=== PATIENT | male | born 1975 | race Two or more races ===

== ENCOUNTER 2022-01-07 01:12 | Inpatient (IN) | payer MEDICAID ==
[~2022-01-07] VITALS: Ht 170.2 cm; Wt 117.4 kg
[2022-01-07 01:58] LABS: Eosinophils # (auto) 0.2 10 ^3/uL (0-0.8); Mean Corpuscular Volume 75.5 fL (80.0-100.0); Monocytes # (auto) 0.5 10 ^3/uL (0-1.3); Nucleated Red Blood Cells % 0.1 %
[2022-01-07 02:00] LABS: Basophils # (auto) 0.1 10 ^3/uL (0-0.2); Basophils % (auto) 0.6 % (0.0-2.0); Eosinophils % (auto) 1.9 % (0.0-7.0); Hematocrit 32.8 % (41.0-53.0); Hemoglobin 10.6 g/dL (13.5-17.5); Lymphocytes # (auto) 1.8 10 ^3/uL (0.4-5.4); Mean Corpuscular Hemoglobin 24.4 pg (28.0-32.0); Mean Corpuscular Hgb Conc. 32.4 g/dL (32.0-36.0); Monocytes % (auto) 5.6 % (0.0-12.0); Neutrophils % (auto) 70.9 % (37.0-80.0); Red Blood Cells 4.35 10^6/uL (4.5-5.90); Red Cell Distribution Width 17.5 % (11.8-14.3); White Blood Cell 8.5 10^3/uL (4.4-10.8)
[2022-01-07 02:13] LABS: INR 0.95 (0.9-1.15); Partial Thromboplastin Time 25.6 sec (24.6-33.4)
[2022-01-07 02:15] LABS: Albumin 3.2 g/dL (3.4-5.0); BUN/Creatinine Ratio 13.1; Calcium 8.4 mg/dL (8.5-10.1); Magnesium 2.1 mg/dL (1.6-2.6); Potassium 3.6 mmol/L (3.5-5.1)
[2022-01-07 02:18] LABS: Bilirubin, Total 0.2 mg/dL (0.2-1.0); Total Protein 7.3 g/dL (6.4-8.2)
[2022-01-07 07:14] LABS: Urine Bacteria FEW /hpf (None Seen); Urine Blood 2+ /uL (Negative); Urine Mucus FEW (None Seen); Urine Specific Gravity 1.018 (1.001-1.035); Urine WBC <1 /hpf (0 - 3)
[2022-01-07] MEDS ORDERED: ACETAMINOPHEN 325 MG TAB PO PRN (09:45)
[2022-01-07] MEDS ORDERED: HYDROcodone-ACET 5/325MG TAB PO PRN (09:45)
[2022-01-07] MEDS ORDERED: NITROGLYCERIN 0.4 MG SL TAB SL ONE (09:45)
[2022-01-07] MEDS ORDERED: ONDANSETRON HCL 4 MG/2 ML VIAL IV PRN (09:45)
[2022-01-07] MEDS ORDERED: MORPHINE SULFATE INJ 2 MG/ml SYRG IV PRN (09:45)
[2022-01-07] MEDS: SODIUM CHLORIDE 0.9% 1,000 ML IV SCH (09:48)
[2022-01-07] MEDS: ENOXAPARIN SOD 40 MG/0.4 ML SYRINGE SC SCH (09:52)
[2022-01-07] MEDS ORDERED: ALBU2TAB4 PO (15:41)
[2022-01-07] MEDS ORDERED: WARF6TAB21 PO (15:41)
[2022-01-07 16:54] VITALS: BP 127/86
[2022-01-07 21:44] VITALS: BP 122/82
[2022-01-08] MEDS: SODIUM CHLORIDE 0.9% 1,000 ML IV SCH ×2 (01:34→15:46)
[2022-01-08 04:31] VITALS: BP 109/67
[2022-01-08 05:44] LABS: Basophils # (auto) 0 10 ^3/uL (0-0.2); Hemoglobin 11.5 g/dL (13.5-17.5); Lymphocytes # (auto) 1.5 10 ^3/uL (0.4-5.4)
[2022-01-08 05:48] LABS: Basophils % (auto) 0.4 % (0.0-2.0); Eosinophils # (auto) 0.1 10 ^3/uL (0-0.8); Eosinophils % (auto) 1.5 % (0.0-7.0); Hematocrit 35.8 % (41.0-53.0); Lymphocytes % (auto) 14.8 % (10.0-50.0); Mean Corpuscular Hemoglobin 23.9 pg (28.0-32.0); Mean Corpuscular Hgb Conc. 32.1 g/dL (32.0-36.0); Mean Corpuscular Volume 74.5 fL (80.0-100.0); Monocytes # (auto) 0.5 10 ^3/uL (0-1.3); Monocytes % (auto) 5.3 % (0.0-12.0); Neutrophils # (auto) 7.8 10 ^3/uL (1.6-8.6); Red Cell Distribution Width 17.5 % (11.8-14.3)
[2022-01-08 05:56] LABS: Potassium 4.1 mmol/L (3.5-5.1)
[2022-01-08 06:04] LABS: Albumin 3.1 g/dL (3.4-5.0); BUN/Creatinine Ratio 15.9; Bilirubin, Total 0.5 mg/dL (0.2-1.0); Calcium 8.5 mg/dL (8.5-10.1); Total Protein 7.6 g/dL (6.4-8.2)
[2022-01-08] MEDS: ENOXAPARIN SOD 40 MG/0.4 ML SYRINGE SC SCH (09:25)
[2022-01-08 09:27] VITALS: BP 116/69
[2022-01-08] MEDS ORDERED: ENOXAPARIN SOD 80 MG/0.8ML SYRINGE SC ONE (12:45)
[2022-01-08 12:51] VITALS: BP 118/80
[2022-01-08] MEDS ORDERED: IOHEXOL 350 MG/ML 100ML IJ ONE (12:53)
[2022-01-08] MEDS ORDERED: HEPARIN SODIUM (PORCINE) 5000 UNITS/ML 1ML VIAL IV ONE ×2 (15:00→16:15)
[2022-01-08] MEDS ORDERED: HEPARIN DRIP/D5W 100UNITS/ML 250 ML IV SCH ×2 (15:15→16:15)
[2022-01-08 15:30] LABS: Basophils % (auto) 0.6 % (0.0-2.0); Eosinophils # (auto) 0.1 10 ^3/uL (0-0.8); Hemoglobin 11.9 g/dL (13.5-17.5); Monocytes # (auto) 0.6 10 ^3/uL (0-1.3); Neutrophils # (auto) 6.3 10 ^3/uL (1.6-8.6)
[2022-01-08 15:31] LABS: Basophils # (auto) 0 10 ^3/uL (0-0.2); Eosinophils % (auto) 1.4 % (0.0-7.0); Hematocrit 37.2 % (41.0-53.0); Lymphocytes # (auto) 1.4 10 ^3/uL (0.4-5.4); Lymphocytes % (auto) 16.8 % (10.0-50.0); Mean Corpuscular Hemoglobin 23.9 pg (28.0-32.0); Mean Corpuscular Volume 74.7 fL (80.0-100.0); Monocytes % (auto) 6.8 % (0.0-12.0); Neutrophils % (auto) 74.4 % (37.0-80.0); Red Blood Cells 4.98 10^6/uL (4.5-5.90); Red Cell Distribution Width 17.3 % (11.8-14.3); White Blood Cell 8.5 10^3/uL (4.4-10.8)
[2022-01-08] MEDS: ASPirin 81 mg TAB PO SCH (15:45)
[2022-01-08 15:48] LABS: INR 0.99 (0.9-1.15); Partial Thromboplastin Time 28.2 sec (24.6-33.4)
[2022-01-08 16:35] VITALS: BP 108/85
[2022-01-08 17:44] LABS: Alcohol, Urine < 3.0 mg/dL (0-10); Amphetamine Screen, Urine POSITIVE (NEGATIVE); Barbiturate Scree,Urine NEGATIVE (NEGATIVE); Benzodiazephine Screen, Urine NEGATIVE (NEGATIVE); Cannabinoid Screen, Urine NEGATIVE (NEGATIVE); Cocaine Screen, Urine NEGATIVE (NEGATIVE); Opiate Scree,Urine NEGATIVE (NEGATIVE); Phencyclidine Screen, Urine NEGATIVE (NEGATIVE)
[2022-01-08 22:00] VITALS: BP 107/72
[2022-01-08] MEDS ORDERED: ENOXAPARIN SOD 120 MG/0.8 ML SYRINGE SC SCH (22:00)
[2022-01-08 22:55] LABS: INR 0.98 (0.9-1.15); Partial Thromboplastin Time 28.8 sec (24.6-33.4)
[2022-01-09] VITALS (9 sets, daily range): BP systolic 95–116; BP diastolic 60–82
[2022-01-09] MEDS ORDERED: HEPARIN SODIUM (PORCINE) 5000 UNITS/ML 1ML VIAL IV ONE (00:15)
[2022-01-09 06:35] LABS: Basophils # (auto) 0 10 ^3/uL (0-0.2); Hemoglobin 12.1 g/dL (13.5-17.5)
[2022-01-09 06:46] LABS: BUN/Creatinine Ratio 15.4; Magnesium 2.2 mg/dL (1.6-2.6); Potassium 4.1 mmol/L (3.5-5.1)
[2022-01-09 07:00] LABS: Basophils % (auto) 0.3 % (0.0-2.0); Eosinophils # (auto) 0.1 10 ^3/uL (0-0.8); Eosinophils % (auto) 1.3 % (0.0-7.0); Hematocrit 37.1 % (41.0-53.0); Lymphocytes # (auto) 1.4 10 ^3/uL (0.4-5.4); Lymphocytes % (auto) 16.7 % (10.0-50.0); Mean Corpuscular Hemoglobin 24.5 pg (28.0-32.0); Mean Corpuscular Hgb Conc. 32.7 g/dL (32.0-36.0); Mean Corpuscular Volume 74.7 fL (80.0-100.0); Monocytes # (auto) 0.5 10 ^3/uL (0-1.3); Monocytes % (auto) 5.9 % (0.0-12.0); Neutrophils # (auto) 6.5 10 ^3/uL (1.6-8.6); Neutrophils % (auto) 75.8 % (37.0-80.0); Red Blood Cells 4.96 10^6/uL (4.5-5.90); Red Cell Distribution Width 17.2 % (11.8-14.3); White Blood Cell 8.6 10^3/uL (4.4-10.8)
[2022-01-09 07:10] LABS: INR 0.98 (0.9-1.15); Partial Thromboplastin Time 28.7 sec (24.6-33.4)
[2022-01-09] MEDS: ASPirin 81 mg TAB PO SCH (08:54)
[2022-01-09] MEDS ORDERED: ANGIOMAX 250 MG VIAL IV ONE (11:12)
[2022-01-09] MEDS ORDERED: MIDAZOLAM HCL 2MG/2ML 2ml VIAL (1mg/ml) ONE (11:12)
[2022-01-09] MEDS ORDERED: SODIUM CHL 0.9% 0 ML ONE (11:12)
[2022-01-09] MEDS ORDERED: fentaNYL CITRATE 100 MCG/2 ML VL ONE (11:12)
[2022-01-09] MEDS ORDERED: VERAPAMIL 2.5MG/ML INJ 2ML VIAL IV ONE (11:12)
[2022-01-09] MEDS ORDERED: HEPARIN SODIUM (PORCINE) 5000 UNITS/ML 1ML VIAL ONE (11:12)
[2022-01-09] MEDS ORDERED: IODIXANOL 320MG/ML 100ML BTL IV ONE (11:13)
[2022-01-09] MEDS ORDERED: LIDOCAINE 2%HCL (LOCAL ANESTH.) INJ 20ML MDV ONE (11:13)
[2022-01-09] MEDS ORDERED: diphenhdrAMINE HCL 50 MG/1 ML VL ONE (11:38)
[2022-01-09] MEDS: SODIUM CHLORIDE 0.9% 1,000 ML IV SCH ×3 (11:45→19:40)
[2022-01-09] MEDS ORDERED: ASPI-325 PO (18:17)
[2022-01-09] MEDS ORDERED: ENO120SY SC (18:17)
[2022-01-10 05:00] VITALS: BP 109/75
[2022-01-10 05:29] LABS: Basophils # (auto) 0.1 10 ^3/uL (0-0.2); Basophils % (auto) 0.6 % (0.0-2.0); Eosinophils # (auto) 0.1 10 ^3/uL (0-0.8); Monocytes # (auto) 0.7 10 ^3/uL (0-1.3)
[2022-01-10 05:31] LABS: Eosinophils % (auto) 1.4 % (0.0-7.0); Hematocrit 36.7 % (41.0-53.0); Hemoglobin 12.1 g/dL (13.5-17.5); Lymphocytes # (auto) 1.7 10 ^3/uL (0.4-5.4); Lymphocytes % (auto) 17.5 % (10.0-50.0); Mean Corpuscular Hemoglobin 24.5 pg (28.0-32.0); Mean Corpuscular Volume 74.2 fL (80.0-100.0); Monocytes % (auto) 7.1 % (0.0-12.0); Neutrophils # (auto) 7.3 10 ^3/uL (1.6-8.6); Neutrophils % (auto) 73.4 % (37.0-80.0); Red Blood Cells 4.95 10^6/uL (4.5-5.90); Red Cell Distribution Width 17.1 % (11.8-14.3); White Blood Cell 9.9 10^3/uL (4.4-10.8)
[2022-01-10 05:51] LABS: Potassium 4.4 mmol/L (3.5-5.1)
[2022-01-10 05:53] LABS: BUN/Creatinine Ratio 14.1
[2022-01-10] MEDS: ASPirin 81 mg TAB PO SCH (08:59)
[2022-01-10 09:00] VITALS: BP 95/52
[2022-01-10 10:21] VITALS: BP 95/52
[2022-01-10] MEDS ORDERED: WARFARIN SODIUM 2 MG TAB PO ONE (12:00)
[2022-01-10] MEDS ORDERED: ENOXAPARIN SOD 120 MG/0.8 ML SYRINGE SC SCH (22:00)
== END 2022-01-10 12:30 | disposition home health service (06) | DRG 190 ==
LOC: ER 01:12 → EDBD 01:12 → TELE 09:53 → TELE-EAST 15:09
PROVIDERS: ADMIT Internal Medicine; ATTEND Internal Medicine
PROC: 4A023N7 Measurement of Cardiac Sampling and Pressure, Left Heart, Percutaneous Approach (ICD-10-PCS; principal; 2022-01-09)
PROC: B211YZZ Fluoroscopy of Multiple Coronary Arteries using Other Contrast (ICD-10-PCS; 2022-01-09)
DX: I21.4 Non-ST elevation (NSTEMI) myocardial infarction (principal); N17.9 Acute kidney failure, unspecified; F15.20 Other stimulant dependence, uncomplicated; Z20.822 Contact with and (suspected) exposure to COVID-19; Z91.14 Patient's other noncompliance with medication regimen; Z79.01 Long term (current) use of anticoagulants; Z95.2 Presence of prosthetic heart valve; I35.8 Other nonrheumatic aortic valve disorders
CPT/HCPCS: 36415; 71045; 71275; 80048; 80053; 80307; 81001; 83735; 83880; 84443; 84484; 85025; 85379; 85610; 85730; 93005; 93306; 93970; 96360; 96372; 99152; G0378; J2250; Q9967

== ENCOUNTER 2022-01-31 16:12 | Emergency (ER) | payer MEDICAID ==
[~2022-01-31] VITALS: Ht 170.2 cm; Wt 95.4 kg
[~2022-01-31 16:12] MED LIST: ALBU2TAB4 PO; ASPI-325 PO; ENO120SY SC; WARF6TAB21 PO
[2022-01-31 17:33] VITALS: BP 123/63
[2022-01-31 18:25] LABS: Basophils # (auto) 0 10 ^3/uL (0-0.2); Basophils % (auto) 0.5 % (0.0-2.0); Eosinophils # (auto) 0.1 10 ^3/uL (0-0.8); Nucleated Red Blood Cells % 0.1 %
[2022-01-31 18:26] LABS: Eosinophils % (auto) 0.8 % (0.0-7.0); Hematocrit 41.7 % (41.0-53.0); Hemoglobin 13.1 g/dL (13.5-17.5); Lymphocytes # (auto) 1.3 10 ^3/uL (0.4-5.4); Lymphocytes % (auto) 14.5 % (10.0-50.0); Mean Corpuscular Hemoglobin 23.6 pg (28.0-32.0); Mean Corpuscular Hgb Conc. 31.5 g/dL (32.0-36.0); Monocytes # (auto) 0.5 10 ^3/uL (0-1.3); Monocytes % (auto) 5.8 % (0.0-12.0); Neutrophils # (auto) 7.3 10 ^3/uL (1.6-8.6); Neutrophils % (auto) 78.4 % (37.0-80.0); Red Blood Cells 5.55 10^6/uL (4.5-5.90); Red Cell Distribution Width 17.6 % (11.8-14.3); White Blood Cell 9.3 10^3/uL (4.4-10.8)
[2022-01-31 18:39] LABS: INR 1.08 (0.9-1.15); Partial Thromboplastin Time 29.4 sec (24.6-33.4)
[2022-01-31 18:47] LABS: Albumin 3.5 g/dL (3.4-5.0); Calcium 9.2 mg/dL (8.5-10.1); Magnesium 2.5 mg/dL (1.6-2.6); Potassium 3.9 mmol/L (3.5-5.1)
[2022-01-31 18:51] LABS: BUN/Creatinine Ratio 12.9; Bilirubin, Total 1.1 mg/dL (0.2-1.0); Total Protein 9.1 g/dL (6.4-8.2)
== END 2022-02-01 01:00 | disposition left against medical advice (07) ==
LOC: ER 16:12 → EDBD 16:12 → ER 02-01 01:00
DX: R31.9 Hematuria, unspecified (principal); I25.2 Old myocardial infarction; Z53.21 Procedure and treatment not carried out due to patient leaving prior to being seen by health care provider
CPT/HCPCS: 36415; 80053; 83735; 83880; 84484; 85025; 85610; 85730; 93005

== ENCOUNTER 2022-07-09 22:02 | Inpatient (IN) | payer MEDICAID ==
[~2022-07-09] VITALS: Ht 172.7 cm; Wt 135.6 kg
[2022-07-09 22:50] LABS: Urine Bacteria FEW /hpf (None Seen); Urine Blood 3+ /uL (Negative); Urine Mucus FEW (None Seen); Urine Specific Gravity 1.016 (1.001-1.035); Urine WBC 22 /hpf (0 - 3)
[2022-07-09 23:22] LABS: Hemoglobin 9.8 g/dL (13.5-17.5)
[2022-07-09 23:23] LABS: Hematocrit 31.5 % (41.0-53.0); Mean Corpuscular Hemoglobin 23.5 pg (28.0-32.0); Mean Corpuscular Hgb Conc. 31.1 g/dL (32.0-36.0); Mean Corpuscular Volume 75.5 fL (80.0-100.0); Red Blood Cells 4.17 10^6/uL (4.5-5.90); White Blood Cell 26.9 10^3/uL (4.4-10.8)
[2022-07-09 23:26] LABS: Basophils % (manual) 0 (0.0-2.0); Blast Cells 0; Metamyelocytes % 0; Myelocytes % 0; Promyelocytes % 0; Reactive Lymphocytes 0
[2022-07-09 23:32] LABS: BUN/Creatinine Ratio 18.1; Calcium 7.5 mg/dL (8.5-10.1); Potassium 3.6 mmol/L (3.5-5.1)
[2022-07-09 23:35] LABS: Total Protein 6.3 g/dL (6.4-8.2)
[2022-07-10] VITALS (7 sets, daily range): BP systolic 96–128; BP diastolic 61–71
[2022-07-10] MEDS ORDERED: SODIUM CHLORIDE 0.9% 1,000 ML IV ONE
[2022-07-10] MEDS ORDERED: PIPERACILLIN-TAZOB 3.375GM 100 ML IV ONE
[2022-07-10] MEDS ORDERED: VANCOMYCIN 1GM/250ML 250 ML IV ONE
[2022-07-10 00:39] LABS: Band Neutrophils % (manual) 1; Eosinophils % (manual) 1 (0-7); Lymphocytes % (manual) 7 (10.0-50.0); Monocytes % (manual) 5 (0-12)
[2022-07-10 01:06] LABS: Lactic Acid w/Reflex 3.6 mmol/L (0.4-2.0)
[2022-07-10] MEDS ORDERED: DOCUSATE SOD 100 MG CAP PO PRN (01:45)
[2022-07-10] MEDS ORDERED: ALBUMIN 25% 100 ML IV ONE ×2 (01:45→04:11)
[2022-07-10] MEDS ORDERED: VANCOMYCIN PER PHARMACY 0 MG IV SCH (01:45)
[2022-07-10] MEDS ORDERED: SODIUM CHLORIDE 0.9% 1,000 ML IV SCH (01:45)
[2022-07-10] MEDS ORDERED: MORPHINE SULFATE INJ 2 MG/ml SYRG IV PRN (02:15)
[2022-07-10] MEDS ORDERED: NITROGLYCERIN 0.4 MG SL TAB SL PRN (02:15)
[2022-07-10] MEDS: ONDANSETRON HCL 4 MG/2 ML VIAL IV PRN (02:29)
[2022-07-10] MEDS: ACETAMINOPHEN 325 MG TAB PO PRN (03:37)
[2022-07-10] MEDS ORDERED: NOREPINEPHRINE 8 MG/250ML KIT 250 ML IV SCH (05:45)
[2022-07-10] MEDS ORDERED: ALBUTEROL SULF 2.5 MG/0.5ML(0.5%) NEB SOLN NEB PRN (06:00)
[2022-07-10] MEDS ORDERED: PHENYLEPHRINE IV 250 ML IV SCH (06:00)
[2022-07-10] MEDS ORDERED: ALBUTEROL SULF HFA 90MCG INH 200DOSE IN SCH (06:00)
[2022-07-10 06:42] LABS: Hematocrit 31.1 % (41.0-53.0); Hemoglobin 9.8 g/dL (13.5-17.5); Mean Corpuscular Hemoglobin 24.3 pg (28.0-32.0); Mean Corpuscular Hgb Conc. 31.5 g/dL (32.0-36.0); Mean Corpuscular Volume 77.3 fL (80.0-100.0); Red Blood Cells 4.02 10^6/uL (4.5-5.90); Red Cell Distribution Width 19.2 % (11.8-14.3)
[2022-07-10] MEDS: ACCU-CHEK COMFORT CURVE STRIP VI SCH ×4 (07:07→21:49)
[2022-07-10 07:10] LABS: Basophils % (manual) 0 (0.0-2.0); Blast Cells 0; Eosinophils % (manual) 0 (0-7); Metamyelocytes % 0; Myelocytes % 0; Promyelocytes % 0; Reactive Lymphocytes 0
[2022-07-10] MEDS: InsuLIN REG 1unit/0.01ml Soln (100units/ml) SC SCH ×4 (07:14→22:02)
[2022-07-10 07:19] LABS: Albumin 2.3 g/dL (3.4-5.0); Calcium 7.5 mg/dL (8.5-10.1)
[2022-07-10 07:22] LABS: BUN/Creatinine Ratio 15.9; Bilirubin, Total 1.5 mg/dL (0.2-1.0); Total Protein 6.8 g/dL (6.4-8.2)
[2022-07-10] MEDS: PIPERACILLIN-TAZOB 3.375GM 100 ML IV SCH ×3 (07:25→23:07)
[2022-07-10] MEDS: HEPARIN SODIUM (PORCINE) 5000 UNITS/ML 1ML VIAL SC SCH ×3 (07:26→22:00)
[2022-07-10] MEDS ORDERED: NOREPINEPHRINE BITARTRATE 16 MG in SODIUM CHL 0.9% 234 ML IV SCH (07:45)
[2022-07-10] MEDS: NOREPINEPHRINE 8 MG/250ML KIT 250 ML IV SCH ×2 (08:10→14:09)
[2022-07-10] MEDS: MULTIPLE VITAMIN TAB PO SCH (08:10)
[2022-07-10] MEDS: FAMOTIDINE (10MG/ML) 2ML VL IV SCH (08:11)
[2022-07-10] MEDS ORDERED: ALBUTEROL MEDNEB 2.5 mg/3ml NEB NEB PRN (08:30)
[2022-07-10 08:53] LABS: Band Neutrophils % (manual) 20; Lymphocytes % (manual) 3 (10.0-50.0); Monocytes % (manual) 5 (0-12)
[2022-07-10] MEDS ORDERED: ZINC SULFATE 220mg CAP or TAB PO SCH (10:00)
[2022-07-10] MEDS ORDERED: ASCORBIC ACID 500 MG TAB PO SCH (10:00)
[2022-07-10] MEDS: VANCOMYCIN 1GM/250ML 250 ML IV SCH (11:22)
[2022-07-10] MEDS: SODIUM CHLORIDE 0.9% 1,000 ML IV SCH ×2 (11:23→16:42)
[2022-07-10 13:22] LABS: Alcohol, Urine < 3.0 mg/dL (0-10); Amphetamine Screen, Urine NEGATIVE (NEGATIVE); Barbiturate Scree,Urine NEGATIVE (NEGATIVE); Benzodiazephine Screen, Urine NEGATIVE (NEGATIVE); Cannabinoid Screen, Urine NEGATIVE (NEGATIVE); Cocaine Screen, Urine NEGATIVE (NEGATIVE); Opiate Scree,Urine NEGATIVE (NEGATIVE); Phencyclidine Screen, Urine NEGATIVE (NEGATIVE)
[2022-07-10 18:34] LABS: % Iron Saturation 7.9 % (20-55)
[2022-07-10 18:35] LABS: Protein, Urine 86.5 mg/dL (0.0-11.9)
[2022-07-10 18:44] LABS: Urine Bacteria MOD /hpf (None Seen); Urine Blood 3+ /uL (Negative); Urine Budding Yeast OCCASIONAL /hpf (None Seen); Urine Hyaline Cast FEW /lpf (0 - 2); Urine Specific Gravity 1.012 (1.001-1.035); Urine WBC 18 /hpf (0 - 3)
[2022-07-10] MEDS ORDERED: ONDANSETRON HCL 4 MG/2 ML VIAL IV ONE (21:15)
[2022-07-10] MEDS ORDERED: HYDROmorphone HCL 2 MG/ML VL/or syr IV ONE (21:15)
[2022-07-11] VITALS (92 sets, daily range): BP systolic 73–133; BP diastolic 44–85
[2022-07-11] MEDS: ACETAMINOPHEN 325 MG TAB PO PRN ×2 (01:03→19:57)
[2022-07-11] MEDS: NOREPINEPHRINE 8 MG/250ML KIT 250 ML IV SCH ×3 (03:00→18:00)
[2022-07-11] MEDS: SODIUM CHLORIDE 0.9% 1,000 ML IV SCH ×2 (03:30→10:45)
[2022-07-11] MEDS: VANCOMYCIN 1GM/250ML 250 ML IV SCH ×2 (03:34→19:57)
[2022-07-11 04:30] LABS: Basophils # (auto) 0.1 10 ^3/uL (0-0.2); Eosinophils # (auto) 0 10 ^3/uL (0-0.8); Eosinophils % (auto) 0.2 % (0.0-7.0); Hemoglobin 9.5 g/dL (13.5-17.5)
[2022-07-11 04:34] LABS: Basophils % (auto) 0.3 % (0.0-2.0); Hematocrit 30.1 % (41.0-53.0); Lymphocytes # (auto) 1.7 10 ^3/uL (0.4-5.4); Lymphocytes % (auto) 9.4 % (10.0-50.0); Mean Corpuscular Hemoglobin 24.4 pg (28.0-32.0); Mean Corpuscular Hgb Conc. 31.5 g/dL (32.0-36.0); Mean Corpuscular Volume 77.5 fL (80.0-100.0); Monocytes % (auto) 11.2 % (0.0-12.0); Neutrophils # (auto) 14.1 10 ^3/uL (1.6-8.6); Neutrophils % (auto) 78.9 % (37.0-80.0); Red Blood Cells 3.88 10^6/uL (4.5-5.90); White Blood Cell 17.8 10^3/uL (4.4-10.8)
[2022-07-11 04:50] LABS: Potassium 3.8 mmol/L (3.5-5.1)
[2022-07-11 04:57] LABS: Albumin 1.8 g/dL (3.4-5.0); BUN/Creatinine Ratio 13.6; Calcium 7.7 mg/dL (8.5-10.1)
[2022-07-11 05:00] LABS: Bilirubin, Total 0.9 mg/dL (0.2-1.0); Total Protein 6.4 g/dL (6.4-8.2)
[2022-07-11] MEDS: PIPERACILLIN-TAZOB 3.375GM 100 ML IV SCH ×3 (05:33→21:47)
[2022-07-11] MEDS: HEPARIN SODIUM (PORCINE) 5000 UNITS/ML 1ML VIAL SC SCH ×3 (05:34→21:48)
[2022-07-11] MEDS: ACCU-CHEK COMFORT CURVE STRIP VI SCH ×4 (05:36→22:04)
[2022-07-11] MEDS: InsuLIN REG 1unit/0.01ml Soln (100units/ml) SC SCH ×4 (05:36→22:19)
[2022-07-11] MEDS ORDERED: SODIUM CHLORIDE 0.9% 1,000 ML IV SCH (10:30)
[2022-07-11] MEDS: FAMOTIDINE (10MG/ML) 2ML VL IV SCH (13:16)
[2022-07-11] MEDS: MULTIPLE VITAMIN TAB PO SCH (13:17)
[2022-07-12] VITALS (88 sets, daily range): BP systolic 82–153; BP diastolic 25–89
[2022-07-12] MEDS: SODIUM CHLORIDE 0.9% 1,000 ML IV SCH ×3 (00:23→16:00)
[2022-07-12 04:33] LABS: Calcium 7.7 mg/dL (8.5-10.1); Potassium 4.3 mmol/L (3.5-5.1)
[2022-07-12 04:34] LABS: BUN/Creatinine Ratio 11.7
[2022-07-12] MEDS: PIPERACILLIN-TAZOB 3.375GM 100 ML IV SCH ×3 (05:43→20:55)
[2022-07-12] MEDS: HEPARIN SODIUM (PORCINE) 5000 UNITS/ML 1ML VIAL SC SCH ×3 (05:43→21:05)
[2022-07-12] MEDS: ACCU-CHEK COMFORT CURVE STRIP VI SCH ×4 (06:33→20:55)
[2022-07-12] MEDS: InsuLIN REG 1unit/0.01ml Soln (100units/ml) SC SCH ×4 (06:34→21:06)
[2022-07-12] MEDS: MULTIPLE VITAMIN TAB PO SCH (10:00)
[2022-07-12] MEDS: FAMOTIDINE (10MG/ML) 2ML VL IV SCH (10:00)
[2022-07-12] MEDS: NOREPINEPHRINE 8 MG/250ML KIT 250 ML IV SCH (14:27)
[2022-07-12] MEDS: VANCOMYCIN 1GM/250ML 250 ML IV SCH (15:30)
[2022-07-12] MEDS ORDERED: WARFARIN SODIUM 5 MG TAB PO ONE (17:00)
[2022-07-13] VITALS (90 sets, daily range): BP systolic 88–125; BP diastolic 45–83
[2022-07-13 03:44] LABS: Hemoglobin 8.2 g/dL (13.5-17.5)
[2022-07-13] MEDS: VANCOMYCIN 1GM/250ML 250 ML IV SCH (03:44)
[2022-07-13 03:47] LABS: Basophils # (auto) 0 10 ^3/uL (0-0.2); Basophils % (auto) 0.2 % (0.0-2.0); Eosinophils # (auto) 0 10 ^3/uL (0-0.8); Eosinophils % (auto) 0.2 % (0.0-7.0); Hematocrit 26.2 % (41.0-53.0); Lymphocytes # (auto) 1.6 10 ^3/uL (0.4-5.4); Lymphocytes % (auto) 10.5 % (10.0-50.0); Mean Corpuscular Hemoglobin 23.7 pg (28.0-32.0); Mean Corpuscular Hgb Conc. 31.2 g/dL (32.0-36.0); Mean Corpuscular Volume 75.7 fL (80.0-100.0); Monocytes # (auto) 1.5 10 ^3/uL (0-1.3); Neutrophils # (auto) 11.9 10 ^3/uL (1.6-8.6); Neutrophils % (auto) 79.1 % (37.0-80.0); Red Blood Cells 3.45 10^6/uL (4.5-5.90); Red Cell Distribution Width 18.6 % (11.8-14.3)
[2022-07-13 03:57] LABS: BUN/Creatinine Ratio 11.3; Calcium 7.4 mg/dL (8.5-10.1); Potassium 4.7 mmol/L (3.5-5.1)
[2022-07-13 04:00] LABS: INR 1.08 (0.9-1.15)
[2022-07-13] MEDS: PIPERACILLIN-TAZOB 3.375GM 100 ML IV SCH ×3 (05:25→22:17)
[2022-07-13] MEDS: SODIUM CHLORIDE 0.9% 1,000 ML IV SCH ×4 (05:28→20:42)
[2022-07-13] MEDS: NOREPINEPHRINE 8 MG/250ML KIT 250 ML IV SCH (05:28)
[2022-07-13] MEDS: HEPARIN SODIUM (PORCINE) 5000 UNITS/ML 1ML VIAL SC SCH ×3 (05:32→22:18)
[2022-07-13] MEDS: ACCU-CHEK COMFORT CURVE STRIP VI SCH ×4 (05:32→22:14)
[2022-07-13] MEDS: InsuLIN REG 1unit/0.01ml Soln (100units/ml) SC SCH ×4 (05:36→22:18)
[2022-07-13] MEDS: MULTIPLE VITAMIN TAB PO SCH (10:36)
[2022-07-13] MEDS: FAMOTIDINE (10MG/ML) 2ML VL IV SCH (10:36)
[2022-07-13] MEDS ORDERED: WARFARIN SODIUM 5 MG TAB PO ONE (17:00)
[2022-07-13] MEDS: ONDANSETRON HCL 4 MG/2 ML VIAL IV PRN (23:00)
[2022-07-14] VITALS (48 sets, daily range): BP systolic 71–125; BP diastolic 41–82
[2022-07-14] MEDS: ACETAMINOPHEN 325 MG TAB PO PRN (00:22)
[2022-07-14] MEDS: ONDANSETRON HCL 4 MG/2 ML VIAL IV PRN (03:52)
[2022-07-14 04:11] LABS: Basophils # (auto) 0 10 ^3/uL (0-0.2); Basophils % (auto) 0.3 % (0.0-2.0); Eosinophils # (auto) 0 10 ^3/uL (0-0.8); Hemoglobin 7.4 g/dL (13.5-17.5)
[2022-07-14 04:14] LABS: Eosinophils % (auto) 0.3 % (0.0-7.0); Hematocrit 23.6 % (41.0-53.0); Lymphocytes # (auto) 1.5 10 ^3/uL (0.4-5.4); Lymphocytes % (auto) 10.8 % (10.0-50.0); Mean Corpuscular Hemoglobin 24.1 pg (28.0-32.0); Mean Corpuscular Hgb Conc. 31.4 g/dL (32.0-36.0); Mean Corpuscular Volume 76.6 fL (80.0-100.0); Monocytes # (auto) 1.1 10 ^3/uL (0-1.3); Monocytes % (auto) 7.7 % (0.0-12.0); Neutrophils # (auto) 11.3 10 ^3/uL (1.6-8.6); Neutrophils % (auto) 80.9 % (37.0-80.0); Nucleated Red Blood Cells % 0.1 %; Red Blood Cells 3.08 10^6/uL (4.5-5.90); Red Cell Distribution Width 18.9 % (11.8-14.3)
[2022-07-14 04:27] LABS: Calcium 7.7 mg/dL (8.5-10.1); Potassium 4.6 mmol/L (3.5-5.1)
[2022-07-14 04:28] LABS: INR 1.2 (0.9-1.15)
[2022-07-14 04:29] LABS: BUN/Creatinine Ratio 9.7
[2022-07-14] MEDS: PIPERACILLIN-TAZOB 3.375GM 100 ML IV SCH ×3 (05:38→22:14)
[2022-07-14] MEDS: HEPARIN SODIUM (PORCINE) 5000 UNITS/ML 1ML VIAL SC SCH ×2 (05:54→14:10)
[2022-07-14] MEDS: SODIUM CHLORIDE 0.9% 1,000 ML IV SCH ×2 (05:55→18:04)
[2022-07-14] MEDS: ACCU-CHEK COMFORT CURVE STRIP VI SCH ×4 (07:41→22:25)
[2022-07-14] MEDS: InsuLIN REG 1unit/0.01ml Soln (100units/ml) SC SCH ×4 (07:41→22:00)
[2022-07-14] MEDS: MULTIPLE VITAMIN TAB PO SCH (10:00)
[2022-07-14] MEDS: FAMOTIDINE (10MG/ML) 2ML VL IV SCH (10:37)
[2022-07-14] MEDS ORDERED: LIDOCAINE 2% JELLY 11ml (GLYDO) ONE (12:58)
[2022-07-14] MEDS ORDERED: LIDOCAINE VISCOUS 2% 15ML UD PO ONE (13:00)
[2022-07-14] MEDS ORDERED: fentaNYL CITRATE 100 MCG/2 ML VL ONE (13:06)
[2022-07-14] MEDS ORDERED: MIDAZOLAM HCL 2MG/2ML 2ml VIAL (1mg/ml) ONE (13:06)
[2022-07-14] MEDS ORDERED: fentaNYL CITRATE 100 MCG/2 ML VL IV ONE (14:00)
[2022-07-14] MEDS ORDERED: MIDAZOLAM HCL 2MG/2ML 2ml VIAL (1mg/ml) IV ONE (14:00)
[2022-07-14] MEDS ORDERED: WARFARIN SODIUM 2 MG TAB PO ONE (17:00)
[2022-07-14] MEDS ORDERED: MIDODRINE HCL 10 MG TAB PO SCH (18:00)
[2022-07-14] MEDS ORDERED: HEPARIN SODIUM (PORCINE) 5000 UNITS/ML 1ML VIAL SC SCH (22:00)
[2022-07-14] MEDS ORDERED: SODIUM CHLORIDE 0.9% 500 ML IV ONE (22:45)
[2022-07-15] VITALS (58 sets, daily range): BP systolic 84–124; BP diastolic 45–86
[2022-07-15] MEDS: PIPERACILLIN-TAZOB 3.375GM 100 ML IV SCH ×2 (06:19→13:18)
[2022-07-15] MEDS: ACCU-CHEK COMFORT CURVE STRIP VI SCH ×4 (06:58→21:55)
[2022-07-15] MEDS: InsuLIN REG 1unit/0.01ml Soln (100units/ml) SC SCH ×4 (06:58→21:55)
[2022-07-15 07:24] LABS: Basophils # (auto) 0.1 10 ^3/uL (0-0.2); Eosinophils # (auto) 0 10 ^3/uL (0-0.8)
[2022-07-15 07:26] LABS: Basophils % (auto) 0.5 % (0.0-2.0); Eosinophils % (auto) 0.3 % (0.0-7.0); Hematocrit 21.4 % (41.0-53.0); Lymphocytes # (auto) 1.5 10 ^3/uL (0.4-5.4); Lymphocytes % (auto) 10.6 % (10.0-50.0); Mean Corpuscular Hgb Conc. 31.1 g/dL (32.0-36.0); Mean Corpuscular Volume 77.1 fL (80.0-100.0); Monocytes # (auto) 1.2 10 ^3/uL (0-1.3); Monocytes % (auto) 8.4 % (0.0-12.0); Neutrophils # (auto) 11.2 10 ^3/uL (1.6-8.6); Neutrophils % (auto) 80.2 % (37.0-80.0); Red Blood Cells 2.77 10^6/uL (4.5-5.90); Red Cell Distribution Width 18.9 % (11.8-14.3)
[2022-07-15 07:30] LABS: BUN/Creatinine Ratio 9.4; Calcium 7.3 mg/dL (8.5-10.1); Potassium 5.4 mmol/L (3.5-5.1)
[2022-07-15 07:37] LABS: INR 1.6 (0.9-1.15)
[2022-07-15 08:22] LABS: Hemoglobin 6.6 g/dL (13.5-17.5)
[2022-07-15] MEDS ORDERED: FUROSEMIDE 20 MG/2 ML VIAL IV ONE (08:45)
[2022-07-15] MEDS: MULTIPLE VITAMIN TAB PO SCH (09:17)
[2022-07-15] MEDS ORDERED: SODIUM ZIRCONIUM CYCL 10 GM PAK PO ONE (12:15)
[2022-07-15] MEDS ORDERED: MIDODRINE HCL 10 MG TAB PO ONE (14:00)
[2022-07-15] MEDS: NOREPINEPHRINE 8 MG/250ML KIT 250 ML IV SCH ×2 (14:30→21:39)
[2022-07-15] MEDS ORDERED: WARFARIN SODIUM 5 MG TAB PO ONE (17:00)
[2022-07-15] MEDS: MIDODRINE HCL 10 MG TAB PO SCH (17:24)
[2022-07-15] MEDS: SODIUM CHLORIDE 0.9% 1,000 ML IV SCH ×3 (18:25→23:02)
[2022-07-15] MEDS: ONDANSETRON HCL 4 MG/2 ML VIAL IV PRN ×2 (18:25→22:37)
[2022-07-15] MEDS: PANTOPRAZOLE 40 MG/10 ML VIAL INJ IV SCH (21:31)
[2022-07-15] MEDS: MEROPENEM 1GM IVPB 100 ML IV SCH (21:32)
[2022-07-16] VITALS (28 sets, daily range): BP systolic 93–157; BP diastolic 46–86
[2022-07-16 03:45] LABS: INR 1.68 (0.9-1.15); Partial Thromboplastin Time 26.8 sec (24.6-33.4)
[2022-07-16 03:49] LABS: BUN/Creatinine Ratio 10.1; Calcium 7.9 mg/dL (8.5-10.1); Potassium 5.4 mmol/L (3.5-5.1)
[2022-07-16] MEDS: MIDODRINE HCL 10 MG TAB PO SCH ×3 (06:01→18:01)
[2022-07-16] MEDS: InsuLIN REG 1unit/0.01ml Soln (100units/ml) SC SCH ×4 (06:35→22:00)
[2022-07-16] MEDS: ACCU-CHEK COMFORT CURVE STRIP VI SCH ×4 (06:36→22:00)
[2022-07-16] MEDS: PANTOPRAZOLE 40 MG/10 ML VIAL INJ IV SCH ×2 (09:53→21:34)
[2022-07-16] MEDS: MEROPENEM 1GM IVPB 100 ML IV SCH (09:53)
[2022-07-16] MEDS: MULTIPLE VITAMIN TAB PO SCH (09:54)
[2022-07-16] MEDS ORDERED: InsuLIN REG 1unit/0.01ml Soln (100units/ml) IV ONE (13:30)
[2022-07-16] MEDS ORDERED: DEXTROSE (25%) 10 ML SYRG IV ONE (13:30)
[2022-07-16] MEDS ORDERED: SODIUM ZIRCONIUM CYCL 10 GM PAK PO ONE (13:30)
[2022-07-16] MEDS ORDERED: ALBUTEROL MEDNEB 2.5 mg/3ml NEB NEB ONE (13:45)
[2022-07-16] MEDS ORDERED: WARFARIN SODIUM 5 MG TAB PO ONE (17:00)
[2022-07-16 17:19] LABS: Eosinophils # (auto) 0 10 ^3/uL (0-0.8); Hemoglobin 7.1 g/dL (13.5-17.5); White Blood Cell 14.7 10^3/uL (4.4-10.8)
[2022-07-16 17:23] LABS: Basophils # (auto) 0 10 ^3/uL (0-0.2); Basophils % (auto) 0.3 % (0.0-2.0); Eosinophils % (auto) 0.1 % (0.0-7.0); Hematocrit 22.1 % (41.0-53.0); Lymphocytes # (auto) 1.5 10 ^3/uL (0.4-5.4); Lymphocytes % (auto) 10.3 % (10.0-50.0); Mean Corpuscular Hemoglobin 24.9 pg (28.0-32.0); Mean Corpuscular Hgb Conc. 32.1 g/dL (32.0-36.0); Mean Corpuscular Volume 77.5 fL (80.0-100.0); Monocytes # (auto) 1.1 10 ^3/uL (0-1.3); Monocytes % (auto) 7.5 % (0.0-12.0); Neutrophils % (auto) 81.8 % (37.0-80.0); Red Blood Cells 2.86 10^6/uL (4.5-5.90); Red Cell Distribution Width 18.2 % (11.8-14.3)
[2022-07-16 17:25] LABS: Calcium 7.8 mg/dL (8.5-10.1); Potassium 5.5 mmol/L (3.5-5.1)
[2022-07-16 17:27] LABS: BUN/Creatinine Ratio 9.7
[2022-07-16 18:47] LABS: % Iron Saturation 8.4 % (20-55)
[2022-07-16] MEDS: SODIUM CHLORIDE 0.9% 1,000 ML IV SCH (21:05)
[2022-07-16] MEDS: MEROPENEM 500MG IVPB 50 ML IV SCH (21:39)
[2022-07-17] VITALS (21 sets, daily range): BP systolic 98–160; BP diastolic 54–87
[2022-07-17 05:33] LABS: Basophils # (auto) 0.1 10 ^3/uL (0-0.2); Eosinophils # (auto) 0 10 ^3/uL (0-0.8); Hematocrit 23.9 % (41.0-53.0); Red Blood Cells 3.08 10^6/uL (4.5-5.90)
[2022-07-17 05:36] LABS: Basophils % (auto) 0.5 % (0.0-2.0); Eosinophils % (auto) 0.3 % (0.0-7.0); Hemoglobin 7.5 g/dL (13.5-17.5); Lymphocytes # (auto) 1.6 10 ^3/uL (0.4-5.4); Lymphocytes % (auto) 9.2 % (10.0-50.0); Mean Corpuscular Hemoglobin 24.4 pg (28.0-32.0); Mean Corpuscular Hgb Conc. 31.4 g/dL (32.0-36.0); Mean Corpuscular Volume 77.6 fL (80.0-100.0); Monocytes # (auto) 1.1 10 ^3/uL (0-1.3); Monocytes % (auto) 6.4 % (0.0-12.0); Neutrophils # (auto) 14.9 10 ^3/uL (1.6-8.6); Neutrophils % (auto) 83.6 % (37.0-80.0); Red Cell Distribution Width 18.5 % (11.8-14.3); White Blood Cell 17.8 10^3/uL (4.4-10.8)
[2022-07-17 05:43] LABS: BUN/Creatinine Ratio 10.3
[2022-07-17 05:48] LABS: INR 1.72 (0.9-1.15); Partial Thromboplastin Time 26.5 sec (24.6-33.4)
[2022-07-17 05:59] LABS: Potassium 5.8 mmol/L (3.5-5.1)
[2022-07-17] MEDS: MIDODRINE HCL 10 MG TAB PO SCH ×3 (06:56→18:03)
[2022-07-17] MEDS: ACCU-CHEK COMFORT CURVE STRIP VI SCH ×4 (07:00→21:18)
[2022-07-17] MEDS: InsuLIN REG 1unit/0.01ml Soln (100units/ml) SC SCH ×4 (07:00→21:55)
[2022-07-17] MEDS: MULTIPLE VITAMIN TAB PO SCH (10:00)
[2022-07-17] MEDS: PANTOPRAZOLE 40 MG/10 ML VIAL INJ IV SCH ×2 (10:24→21:18)
[2022-07-17] MEDS: MEROPENEM 500MG IVPB 50 ML IV SCH ×2 (10:24→22:24)
[2022-07-17] MEDS: SODIUM CHLORIDE 0.9% 1,000 ML IV SCH ×2 (10:25→23:45)
[2022-07-17] MEDS: NOREPINEPHRINE 8 MG/250ML KIT 250 ML IV SCH (14:30)
[2022-07-17 20:07] LABS: BUN/Creatinine Ratio 10.6; Calcium 7.9 mg/dL (8.5-10.1)
[2022-07-17] MEDS ORDERED: DEXTROSE (50%) 50ML SYRG IV ONE (20:45)
[2022-07-17] MEDS ORDERED: InsuLIN REG 1unit/0.01ml Soln (100units/ml) IV ONE (20:45)
[2022-07-17] MEDS ORDERED: CALCIUM GLUC 1,000mg/50ml-NS 50 ML IV ONE (20:45)
[2022-07-17] MEDS ORDERED: SODIUM ZIRCONIUM CYCL 10 GM PAK PO ONE (20:45)
[2022-07-17] MEDS ORDERED: SODIUM BICARBONATE 8.4% INJ 50ML SYRINGE IV ONE (20:45)
[2022-07-18] VITALS (19 sets, daily range): BP systolic 105–152; BP diastolic 54–79
[2022-07-18] MEDS: clonazePAM 0.5 MG TAB PO PRN (00:24)
[2022-07-18 01:30] LABS: BUN/Creatinine Ratio 11.1; Calcium 7.9 mg/dL (8.5-10.1)
[2022-07-18 02:12] LABS: Potassium 5.7 mmol/L (3.5-5.1)
[2022-07-18] MEDS ORDERED: DEXTROSE (50%) 50ML SYRG IV ONE ×2 (02:45→18:30)
[2022-07-18] MEDS ORDERED: SODIUM BICARBONATE 8.4 % INJ 50ML VIAL IV ONE (02:45)
[2022-07-18] MEDS ORDERED: CALCIUM GLUC 1,000mg/50ml-NS 50 ML IV ONE (02:45)
[2022-07-18] MEDS ORDERED: InsuLIN REG 1unit/0.01ml Soln (100units/ml) IV ONE ×2 (02:45→18:30)
[2022-07-18] MEDS ORDERED: SODIUM ZIRCONIUM CYCL 10 GM PAK PO ONE ×3 (02:45→18:45)
[2022-07-18] MEDS: MIDODRINE HCL 10 MG TAB PO SCH ×3 (06:23→18:01)
[2022-07-18] MEDS: InsuLIN REG 1unit/0.01ml Soln (100units/ml) SC SCH ×4 (06:37→22:00)
[2022-07-18] MEDS: ACCU-CHEK COMFORT CURVE STRIP VI SCH ×4 (06:37→22:11)
[2022-07-18 07:18] LABS: Calcium 8.2 mg/dL (8.5-10.1); Potassium 5.5 mmol/L (3.5-5.1)
[2022-07-18 07:21] LABS: BUN/Creatinine Ratio 11.4
[2022-07-18] MEDS: SODIUM CHLORIDE 0.9% 1,000 ML IV SCH ×4 (09:57→20:27)
[2022-07-18] MEDS: MULTIPLE VITAMIN TAB PO SCH (09:57)
[2022-07-18] MEDS: MEROPENEM 500MG IVPB 50 ML IV SCH ×2 (09:57→22:10)
[2022-07-18] MEDS: PANTOPRAZOLE 40 MG/10 ML VIAL INJ IV SCH ×2 (09:57→22:10)
[2022-07-18] MEDS: NOREPINEPHRINE 8 MG/250ML KIT 250 ML IV SCH (14:30)
[2022-07-18] MEDS ORDERED: PHYTONADIONE (VIT K)10 MG/ML 1ML VIAL SUBCUT ONE (16:45)
[2022-07-18] MEDS ORDERED: phytonadione 10 MG in SODIUM CHL 0.9% 50 ML IV ONE (17:15)
[2022-07-18 17:38] LABS: INR 1.31 (0.9-1.15)
[2022-07-18 18:06] LABS: Calcium 7.9 mg/dL (8.5-10.1)
[2022-07-18 18:16] LABS: Potassium 6.1 mmol/L (3.5-5.1)
[2022-07-18] MEDS ORDERED: ALBUTEROL SULF 2.5 MG/0.5ML(0.5%) NEB SOLN NEB ONE (18:30)
[2022-07-18 23:21] LABS: Calcium 7.8 mg/dL (8.5-10.1); Potassium 5.5 mmol/L (3.5-5.1)
[2022-07-18 23:30] LABS: BUN/Creatinine Ratio 11.1
[2022-07-19] MEDS: SODIUM CHLORIDE 0.9% 1,000 ML IV SCH ×4 (02:25→18:55)
[2022-07-19] MEDS: HYDROcodone-ACET 5/325MG TAB PO PRN ×2 (02:52→08:48)
[2022-07-19] MEDS: MIDODRINE HCL 10 MG TAB PO SCH ×3 (05:54→17:48)
[2022-07-19] MEDS: ACCU-CHEK COMFORT CURVE STRIP VI SCH ×4 (06:24→21:30)
[2022-07-19] MEDS: InsuLIN REG 1unit/0.01ml Soln (100units/ml) SC SCH ×4 (06:24→21:30)
[2022-07-19] MEDS: SODIUM ZIRCONIUM CYCL 10 GM PAK PO SCH ×3 (08:35→23:27)
[2022-07-19 09:00] VITALS: BP 115/67
[2022-07-19] MEDS: MEROPENEM 500MG IVPB 50 ML IV SCH ×2 (10:57→21:24)
[2022-07-19] MEDS: MULTIPLE VITAMIN TAB PO SCH (10:57)
[2022-07-19] MEDS: PANTOPRAZOLE 40 MG/10 ML VIAL INJ IV SCH ×2 (10:57→21:26)
[2022-07-19 13:09] VITALS: BP 114/75
[2022-07-19] MEDS: NOREPINEPHRINE 8 MG/250ML KIT 250 ML IV SCH (13:45)
[2022-07-19] MEDS ORDERED: ENOXAPARIN SOD 120 MG/0.8 ML SYRINGE SC ONE (15:45)
[2022-07-19 16:27] LABS: Basophils # (auto) 0.1 10 ^3/uL (0-0.2); Basophils % (auto) 0.5 % (0.0-2.0); Eosinophils # (auto) 0.1 10 ^3/uL (0-0.8); Hematocrit 25.9 % (41.0-53.0); Monocytes # (auto) 1.1 10 ^3/uL (0-1.3); Monocytes % (auto) 7.4 % (0.0-12.0); Nucleated Red Blood Cells % 0.1 %; Red Blood Cells 3.33 10^6/uL (4.5-5.90)
[2022-07-19 16:30] LABS: Eosinophils % (auto) 0.5 % (0.0-7.0); Hemoglobin 8.2 g/dL (13.5-17.5); Lymphocytes # (auto) 1.4 10 ^3/uL (0.4-5.4); Lymphocytes % (auto) 9.6 % (10.0-50.0); Mean Corpuscular Hemoglobin 24.6 pg (28.0-32.0); Mean Corpuscular Hgb Conc. 31.6 g/dL (32.0-36.0); Neutrophils # (auto) 12.1 10 ^3/uL (1.6-8.6); Red Cell Distribution Width 18.6 % (11.8-14.3); White Blood Cell 14.8 10^3/uL (4.4-10.8)
[2022-07-19 16:54] LABS: BUN/Creatinine Ratio 11.1; Calcium 8.1 mg/dL (8.5-10.1); Potassium 5.5 mmol/L (3.5-5.1)
[2022-07-19 17:00] VITALS: BP 106/67
[2022-07-19 22:00] VITALS: BP 152/56
[2022-07-20] MEDS: SODIUM CHLORIDE 0.9% 1,000 ML IV SCH ×2 (03:32→05:46)
[2022-07-20 05:00] VITALS: BP 99/56
[2022-07-20] MEDS: MIDODRINE HCL 10 MG TAB PO SCH ×3 (05:37→17:27)
[2022-07-20] MEDS: ACCU-CHEK COMFORT CURVE STRIP VI SCH ×4 (05:45→22:12)
[2022-07-20] MEDS: InsuLIN REG 1unit/0.01ml Soln (100units/ml) SC SCH ×4 (05:45→22:00)
[2022-07-20 05:46] VITALS: BP 154/94
[2022-07-20] MEDS: SODIUM ZIRCONIUM CYCL 10 GM PAK PO SCH ×2 (08:00→17:26)
[2022-07-20 09:00] VITALS: BP 108/66
[2022-07-20] MEDS: MULTIPLE VITAMIN TAB PO SCH (09:00)
[2022-07-20] MEDS: MEROPENEM 500MG IVPB 50 ML IV SCH ×2 (09:06→22:11)
[2022-07-20] MEDS: PANTOPRAZOLE 40 MG/10 ML VIAL INJ IV SCH ×2 (09:06→22:12)
[2022-07-20] MEDS: clonazePAM 0.5 MG TAB PO PRN (09:12)
[2022-07-20] MEDS ORDERED: fentaNYL CITRATE 100 MCG/2 ML VL IV ONE (10:30)
[2022-07-20] MEDS ORDERED: MIDAZOLAM HCL 2MG/2ML 2ml VIAL (1mg/ml) IV ONE (10:30)
[2022-07-20] MEDS ORDERED: LIDOCAINE 2% (LOCAL ANESTH.) PF 5ml SDV ONE (10:56)
[2022-07-20] MEDS ORDERED: GELATIN 1 SPONGE SIZE 50 TOP ONE (11:05)
[2022-07-20 15:36] LABS: Eosinophils # (auto) 0.1 10 ^3/uL (0-0.8); Hematocrit 22.7 % (41.0-53.0); Hemoglobin 7.3 g/dL (13.5-17.5)
[2022-07-20 15:39] LABS: Basophils # (auto) 0.2 10 ^3/uL (0-0.2); Basophils % (auto) 1.4 % (0.0-2.0); Eosinophils % (auto) 0.5 % (0.0-7.0); Lymphocytes # (auto) 1.8 10 ^3/uL (0.4-5.4); Lymphocytes % (auto) 13.2 % (10.0-50.0); Mean Corpuscular Hemoglobin 24.9 pg (28.0-32.0); Mean Corpuscular Hgb Conc. 32.1 g/dL (32.0-36.0); Mean Corpuscular Volume 77.5 fL (80.0-100.0); Monocytes # (auto) 1.2 10 ^3/uL (0-1.3); Monocytes % (auto) 8.4 % (0.0-12.0); Neutrophils # (auto) 10.5 10 ^3/uL (1.6-8.6); Neutrophils % (auto) 76.5 % (37.0-80.0); Red Blood Cells 2.93 10^6/uL (4.5-5.90); Red Cell Distribution Width 18.6 % (11.8-14.3); White Blood Cell 13.8 10^3/uL (4.4-10.8)
[2022-07-20 15:54] LABS: Calcium 8.2 mg/dL (8.5-10.1); Potassium 5.4 mmol/L (3.5-5.1)
[2022-07-20 15:56] LABS: BUN/Creatinine Ratio 11.9
[2022-07-20 16:55] LABS: INR 1.14 (0.9-1.15)
[2022-07-20] MEDS ORDERED: FUROSEMIDE 40 MG/4 ML VIAL IV ONE (17:15)
[2022-07-20 17:20] VITALS: BP 100/64
[2022-07-20 22:00] VITALS: BP 105/65
[2022-07-21] MEDS: LACTULOSE 20Gm/30ML SOLN PO SCH ×4 (00:28→18:14)
[2022-07-21] MEDS: SODIUM ZIRCONIUM CYCL 10 GM PAK PO SCH ×3 (00:29→16:19)
[2022-07-21 04:37] VITALS: BP 109/66
[2022-07-21] MEDS: MIDODRINE HCL 10 MG TAB PO SCH ×3 (05:33→18:05)
[2022-07-21] MEDS: ACCU-CHEK COMFORT CURVE STRIP VI SCH ×4 (05:42→21:51)
[2022-07-21] MEDS: InsuLIN REG 1unit/0.01ml Soln (100units/ml) SC SCH ×4 (05:42→21:52)
[2022-07-21 07:00] LABS: Basophils # (auto) 0.1 10 ^3/uL (0-0.2); Basophils % (auto) 0.6 % (0.0-2.0); Eosinophils # (auto) 0 10 ^3/uL (0-0.8); Eosinophils % (auto) 0.3 % (0.0-7.0); Hematocrit 24.1 % (41.0-53.0); Hemoglobin 7.6 g/dL (13.5-17.5); Lymphocytes # (auto) 1.4 10 ^3/uL (0.4-5.4); Lymphocytes % (auto) 10.9 % (10.0-50.0); Mean Corpuscular Hemoglobin 24.4 pg (28.0-32.0); Mean Corpuscular Hgb Conc. 31.3 g/dL (32.0-36.0); Mean Corpuscular Volume 77.8 fL (80.0-100.0); Monocytes # (auto) 1.1 10 ^3/uL (0-1.3); Monocytes % (auto) 8.1 % (0.0-12.0); Neutrophils # (auto) 10.5 10 ^3/uL (1.6-8.6); Neutrophils % (auto) 80.1 % (37.0-80.0); Red Cell Distribution Width 18.6 % (11.8-14.3); White Blood Cell 13.1 10^3/uL (4.4-10.8)
[2022-07-21 07:31] LABS: Potassium 5.7 mmol/L (3.5-5.1)
[2022-07-21] MEDS: PANTOPRAZOLE 40 MG/10 ML VIAL INJ IV SCH ×2 (07:56→22:12)
[2022-07-21] MEDS: MULTIPLE VITAMIN TAB PO SCH (07:56)
[2022-07-21 08:00] VITALS: BP 110/67
[2022-07-21] MEDS ORDERED: SODIUM BICARBONATE 8.4% INJ 50ML SYRINGE IV ONE (08:30)
[2022-07-21] MEDS ORDERED: InsuLIN REG 1unit/0.01ml Soln (100units/ml) IV ONE (08:30)
[2022-07-21] MEDS ORDERED: FUROSEMIDE 40 MG/4 ML VIAL IV ONE (08:30)
[2022-07-21] MEDS ORDERED: DEXTROSE (50%) 50ML SYRG IV ONE (08:30)
[2022-07-21 08:31] VITALS: BP 110/67
[2022-07-21] MEDS: MEROPENEM 500MG IVPB 50 ML IV SCH ×2 (10:43→22:17)
[2022-07-21 12:48] VITALS: BP 127/76
[2022-07-21] MEDS ORDERED: SODIUM FERR GLUC 62.5MG/5ML 125 MG in SODIUM CHL 0.9% 100 ML IV ONE (15:00)
[2022-07-21 16:38] VITALS: BP 127/84
[2022-07-21 21:51] VITALS: BP 92/45
[2022-07-22] MEDS: ONDANSETRON HCL 4 MG/2 ML VIAL IV PRN ×3 (01:05→17:52)
[2022-07-22 05:52] LABS: Basophils # (auto) 0.2 10 ^3/uL (0-0.2); Basophils % (auto) 1.2 % (0.0-2.0); Eosinophils # (auto) 0 10 ^3/uL (0-0.8); Eosinophils % (auto) 0.1 % (0.0-7.0); Hemoglobin 7.9 g/dL (13.5-17.5); Lymphocytes # (auto) 1.3 10 ^3/uL (0.4-5.4); Lymphocytes % (auto) 7.1 % (10.0-50.0); Mean Corpuscular Hemoglobin 24.6 pg (28.0-32.0); Mean Corpuscular Hgb Conc. 31.7 g/dL (32.0-36.0); Mean Corpuscular Volume 77.4 fL (80.0-100.0); Monocytes # (auto) 1.6 10 ^3/uL (0-1.3); Monocytes % (auto) 9.1 % (0.0-12.0); Neutrophils # (auto) 14.7 10 ^3/uL (1.6-8.6); Neutrophils % (auto) 82.5 % (37.0-80.0); Nucleated Red Blood Cells % 0.1 %; Red Blood Cells 3.23 10^6/uL (4.5-5.90); Red Cell Distribution Width 18.9 % (11.8-14.3); White Blood Cell 17.9 10^3/uL (4.4-10.8)
[2022-07-22] MEDS: LACTULOSE 20Gm/30ML SOLN PO SCH ×4 (06:39→17:25)
[2022-07-22] MEDS: MIDODRINE HCL 10 MG TAB PO SCH ×3 (06:41→17:45)
[2022-07-22] MEDS: ACCU-CHEK COMFORT CURVE STRIP VI SCH ×4 (06:54→21:56)
[2022-07-22] MEDS: InsuLIN REG 1unit/0.01ml Soln (100units/ml) SC SCH ×4 (06:55→21:56)
[2022-07-22 07:40] LABS: BUN/Creatinine Ratio 11.7; Potassium 6.6 mmol/L (3.5-5.1)
[2022-07-22 08:00] VITALS: BP 102/57
[2022-07-22] MEDS ORDERED: InsuLIN REG 1unit/0.01ml Soln (100units/ml) IV ONE ×3 (08:15→09:15)
[2022-07-22] MEDS ORDERED: DEXTROSE (50%) 50ML SYRG IV ONE ×3 (08:15→09:15)
[2022-07-22] MEDS ORDERED: ALBUTEROL SULF 2.5 MG/0.5ML(0.5%) NEB SOLN NEB ONE ×3 (08:30→12:45)
[2022-07-22] MEDS: PANTOPRAZOLE 40 MG/10 ML VIAL INJ IV SCH ×2 (08:35→22:00)
[2022-07-22] MEDS: SODIUM ZIRCONIUM CYCL 10 GM PAK PO SCH (08:35)
[2022-07-22] MEDS ORDERED: SODIUM BICARBONATE 8.4% INJ 50ML SYRINGE IV ONE (09:15)
[2022-07-22] MEDS ORDERED: CALCIUM GLUC 1,000mg/50ml-NS 50 ML IV ONE (09:15)
[2022-07-22] MEDS: MEROPENEM 500MG IVPB 50 ML IV SCH (10:37)
[2022-07-22] MEDS: SODIUM CHLORIDE 0.9% 1,000 ML IV SCH ×2 (10:37→22:04)
[2022-07-22] MEDS ORDERED: LORazepam 2MG/ML-1ML VIAL IV PRN (11:00)
[2022-07-22] MEDS: SODIUM FERR GLUC 62.5MG/5ML 125 MG in SODIUM CHL 0.9% 100 ML IV SCH (11:43)
[2022-07-22 12:00] VITALS: BP 115/59
[2022-07-22 13:29] LABS: Folate (Folic Acid) > 24.00 ng/mL (5.38-24)
[2022-07-22] MEDS ORDERED: CEFTRIAXONE SODIUM 2 GM in D5W 5% 50 ML IV SCH ×4 (15:00)
[2022-07-22 15:56] LABS: Albumin 2.1 g/dL (3.4-5.0); Bilirubin, Direct 0.4 mg/dL (0-0.2)
[2022-07-22 16:04] LABS: Bilirubin, Total 0.8 mg/dL (0.2-1.0); Total Protein 7.4 g/dL (6.4-8.2)
[2022-07-22 17:00] VITALS: BP 105/67
[2022-07-22 22:00] VITALS: BP 105/67
[2022-07-23] VITALS (32 sets, daily range): BP systolic 74–158; BP diastolic 27–95
[2022-07-23] MEDS: LACTULOSE 20Gm/30ML SOLN PO SCH ×4 (00:23→17:52)
[2022-07-23] MEDS: HYDROcodone-ACET 5/325MG TAB PO PRN (00:34)
[2022-07-23] MEDS: MIDODRINE HCL 10 MG TAB PO SCH ×3 (06:00→17:53)
[2022-07-23] MEDS: SODIUM CHLORIDE 0.9% 1,000 ML IV SCH ×2 (06:15→17:51)
[2022-07-23] MEDS: ONDANSETRON HCL 4 MG/2 ML VIAL IV PRN ×2 (06:26→20:01)
[2022-07-23] MEDS: InsuLIN REG 1unit/0.01ml Soln (100units/ml) SC SCH ×4 (07:00→22:30)
[2022-07-23] MEDS ORDERED: AMIODARONE HCL (50 MG/ ML) 3 ML VIAL IV ONE ×2 (07:11→14:23)
[2022-07-23 07:31] LABS: Albumin 2.2 g/dL (3.4-5.0); BUN/Creatinine Ratio 11.3; Bilirubin, Total 1.2 mg/dL (0.2-1.0); Total Protein 7.9 g/dL (6.4-8.2)
[2022-07-23 07:38] LABS: Potassium 6.6 mmol/L (3.5-5.1)
[2022-07-23] MEDS: ACCU-CHEK COMFORT CURVE STRIP VI SCH ×4 (08:20→22:30)
[2022-07-23] MEDS ORDERED: InsuLIN REG 1unit/0.01ml Soln (100units/ml) SC ONE (08:30)
[2022-07-23] MEDS ORDERED: ADENOSINE 6 MG/2 ML INJ IV ONE ×2 (08:30→13:54)
[2022-07-23] MEDS ORDERED: CALCIUM GLUC 1,000mg/50ml-NS 50 ML IV ONE ×3 (08:30→20:30)
[2022-07-23] MEDS ORDERED: SODIUM BICARBONATE 8.4 % INJ 50ML VIAL IV ONE ×2 (08:30→09:15)
[2022-07-23] MEDS ORDERED: SODIUM ZIRCONIUM CYCL 10 GM PAK PO ONE ×3 (08:30→20:30)
[2022-07-23] MEDS ORDERED: DEXTROSE (50%) 50ML SYRG IV ONE ×4 (08:30→20:30)
[2022-07-23] MEDS ORDERED: SODIUM ZIRCONIUM CYCL 10 GM PAK ONE (08:39)
[2022-07-23] MEDS ORDERED: InsuLIN REG 1unit/0.01ml Soln (100units/ml) ONE (08:41)
[2022-07-23] MEDS ORDERED: SODIUM BICARBONATE 8.4% INJ 50ML SYRINGE ONE (09:10)
[2022-07-23] MEDS ORDERED: SODIUM BICARBONATE 50ML VIAL 150 ML in D5W 5% 1,000 ML IV ONE (09:15)
[2022-07-23] MEDS ORDERED: FUROSEMIDE 40 MG/4 ML VIAL IV ONE ×2 (09:15→13:45)
[2022-07-23] MEDS ORDERED: NOREPINEPHRINE 8 MG/250ML KIT 250 ML IV ONE (09:40)
[2022-07-23] MEDS ORDERED: METOPROLOL TARTRATE 1MG/1ML-5ML VIAL IV ONE ×4 (09:43→14:30)
[2022-07-23] MEDS ORDERED: ALBUTEROL SULF 2.5 MG/0.5ML(0.5%) NEB SOLN NEB ONE ×2 (09:57→20:30)
[2022-07-23] MEDS ORDERED: SODIUM CHL 0.9% 1000 ML BAG XX ONE (10:00)
[2022-07-23] MEDS: NOREPINEPHRINE 8 MG/250ML KIT 250 ML IV SCH (10:15)
[2022-07-23] MEDS: SODIUM ZIRCONIUM CYCL 10 GM PAK PO SCH ×3 (10:30→22:00)
[2022-07-23] MEDS: PANTOPRAZOLE 40 MG/10 ML VIAL INJ IV SCH ×2 (10:30→22:00)
[2022-07-23] MEDS ORDERED: MORPHINE SULFATE INJ 2 MG/ml SYRG IV ONE (11:30)
[2022-07-23 12:06] LABS: INR 2.05 (0.9-1.15)
[2022-07-23] MEDS ORDERED: InsuLIN REG 1unit/0.01ml Soln (100units/ml) IV ONE ×3 (13:45→20:30)
[2022-07-23] MEDS ORDERED: SODIUM BICARBONATE 8.4% INJ 50ML SYRINGE IV ONE ×2 (13:54→20:30)
[2022-07-23] MEDS ORDERED: LORazepam 0.5 MG TAB PO PRN (14:00)
[2022-07-23] MEDS ORDERED: LORazepam 2MG/ML-1ML VIAL ONE (14:26)
[2022-07-23] MEDS ORDERED: AMIODARONE HCL 150 MG in D5W 5% 100 ML IV ONE (14:30)
[2022-07-23] MEDS ORDERED: LORazepam 2MG/ML-1ML VIAL IV PRN (14:30)
[2022-07-23] MEDS ORDERED: LORazepam 2MG/ML-1ML VIAL IV ONE (14:30)
[2022-07-23] MEDS ORDERED: BUMETANIDE INJECTION 12.5 MG in GIVE UN-DILUTED 0 ML IV SCH (14:45)
[2022-07-23] MEDS ORDERED: AMIODARONE 450mg/250ml AE 250 ML IV SCH (14:45)
[2022-07-23] MEDS: CEFTRIAXONE SODIUM 2 GM in D5W 5% 50 ML IV SCH ×2 (14:54→17:52)
[2022-07-23] MEDS: SODIUM FERR GLUC 62.5MG/5ML 125 MG in SODIUM CHL 0.9% 100 ML IV SCH (15:05)
[2022-07-23 19:59] LABS: Calcium 7.7 mg/dL (8.5-10.1)
[2022-07-23 20:16] LABS: Potassium 7.1 mmol/L (3.5-5.1)
[2022-07-23] MEDS ORDERED: LACTULOSE 10g/15ml SOLN 473ML PR ONE (20:30)
[2022-07-23] MEDS: AMIODARONE 450mg/250ml AE 250 ML IV SCH (21:15)
[2022-07-24] VITALS (85 sets, daily range): BP systolic 41–235; BP diastolic 12–211
[2022-07-24] MEDS: SODIUM CHLORIDE 0.9% 1,000 ML IV SCH (02:15)
[2022-07-24] MEDS ORDERED: hydrALAZINE HCL 20 MG/ML VL IV PRN (02:45)
[2022-07-24] MEDS ORDERED: ETOMIDATE (2MG/ML) 20ML VIAL IV ONE ×2 (03:09)
[2022-07-24] MEDS ORDERED: SUCCINYLCHOLINE CHLORIDE 20 MG/ML 10ML VIAL IV ONE ×2 (03:10)
[2022-07-24] MEDS: DEXTROSE (50%) 50ML SYRG IV PRN (03:10)
[2022-07-24] MEDS ORDERED: PHENYLEPHRINE IV 250 ML IV ONE ×2 (03:19→05:10)
[2022-07-24] MEDS: PHENYLEPHRINE IV 250 ML IV SCH ×3 (03:19→14:19)
[2022-07-24] MEDS ORDERED: MIDAZOLAM DRIP 50 mg/50mL 50 ML IV ONE (03:51)
[2022-07-24] MEDS: MIDAZOLAM DRIP 50 mg/50mL 50 ML IV SCH ×2 (03:51→23:45)
[2022-07-24] MEDS: PROPOFOL 100 ML IV SCH (04:30)
[2022-07-24] MEDS ORDERED: SODIUM BICARBONATE 8.4 % INJ 50ML VIAL IV ONE ×5 (04:30→21:00)
[2022-07-24] MEDS ORDERED: PROPOFOL 100 ML IV ONE (04:37)
[2022-07-24 04:58] LABS: Hematocrit 30.7 % (41.0-53.0); Hemoglobin 8.5 g/dL (13.5-17.5); Mean Corpuscular Hemoglobin 24.1 pg (28.0-32.0); Mean Corpuscular Hgb Conc. 27.8 g/dL (32.0-36.0); Mean Corpuscular Volume 86.6 fL (80.0-100.0); Red Blood Cells 3.55 10^6/uL (4.5-5.90)
[2022-07-24 05:07] LABS: Albumin 2.1 g/dL (3.4-5.0); Calcium 7.2 mg/dL (8.5-10.1)
[2022-07-24 05:10] LABS: Bilirubin, Total 1.5 mg/dL (0.2-1.0); Total Protein 7.6 g/dL (6.4-8.2)
[2022-07-24 05:20] LABS: Lactic Acid w/Reflex 17.9 mmol/L (0.4-2.0)
[2022-07-24 05:26] LABS: White Blood Cell 46.7 10^3/uL (4.4-10.8)
[2022-07-24 05:27] LABS: BUN/Creatinine Ratio 10.3; Potassium 6.9 mmol/L (3.5-5.1)
[2022-07-24 05:28] LABS: Basophils % (manual) 0 (0.0-2.0); Blast Cells 0; Eosinophils % (manual) 0 (0-7); Promyelocytes % 0; Reactive Lymphocytes 0
[2022-07-24] MEDS: SODIUM ZIRCONIUM CYCL 10 GM PAK PO SCH ×2 (06:00→15:19)
[2022-07-24] MEDS: CEFTRIAXONE SODIUM 2 GM in D5W 5% 50 ML IV SCH ×2 (06:00→18:16)
[2022-07-24] MEDS: LACTULOSE 10g/15ml SOLN 473ML PR SCH ×4 (06:00→23:58)
[2022-07-24] MEDS: LACTULOSE 20Gm/30ML SOLN PO SCH ×4 (06:00→18:16)
[2022-07-24] MEDS: MIDODRINE HCL 10 MG TAB PO SCH ×3 (06:00→18:17)
[2022-07-24] MEDS: InsuLIN REG 1unit/0.01ml Soln (100units/ml) SC SCH ×4 (06:40→22:00)
[2022-07-24] MEDS: ACCU-CHEK COMFORT CURVE STRIP VI SCH ×4 (06:40→22:00)
[2022-07-24] MEDS ORDERED: CALCIUM GLUC 1,000mg/50ml-NS 50 ML IV ONE ×3 (07:30→22:15)
[2022-07-24] MEDS ORDERED: DEXTROSE (50%) 50ML SYRG IV ONE ×3 (07:30→22:15)
[2022-07-24] MEDS ORDERED: InsuLIN REG 1unit/0.01ml Soln (100units/ml) IV ONE ×3 (07:30→22:15)
[2022-07-24] MEDS ORDERED: ALBUTEROL SULF 2.5 MG/0.5ML(0.5%) NEB SOLN NEB ONE (07:30)
[2022-07-24] MEDS ORDERED: SODIUM BICARBONATE 50ML VIAL 150 ML in D5W 5% 1,000 ML IV SCH ×2 (07:30→15:00)
[2022-07-24] MEDS ORDERED: ALBUTEROL MEDNEB 2.5 mg/3ml NEB ONE (07:39)
[2022-07-24 09:10] LABS: Band Neutrophils % (manual) 16; Lymphocytes % (manual) 11 (10.0-50.0); Metamyelocytes % 3; Monocytes % (manual) 7 (0-12); Myelocytes % 5
[2022-07-24 10:47] LABS: INR 4.9 (0.9-1.15)
[2022-07-24] MEDS ORDERED: phytonadione 5 MG in SODIUM CHL 0.9% 50 ML IV ONE (11:00)
[2022-07-24] MEDS ORDERED: EPINEPHrine HCL 250 ML IV SCH (11:30)
[2022-07-24] MEDS: VASOPRESSIN 20 UNITS in SODIUM CHL 0.9% 99 ML IV SCH ×2 (12:33→18:18)
[2022-07-24] MEDS: NOREPINEPHRINE 8 MG/250ML KIT 250 ML IV SCH (12:33)
[2022-07-24] MEDS: PANTOPRAZOLE 40 MG/10 ML VIAL INJ IV SCH ×2 (12:33→23:08)
[2022-07-24] MEDS: AMIODARONE 450mg/250ml AE 250 ML IV SCH ×3 (12:34→23:57)
[2022-07-24 12:52] LABS: BUN/Creatinine Ratio 10.5; Calcium 7.2 mg/dL (8.5-10.1)
[2022-07-24 12:57] LABS: Potassium 6.7 mmol/L (3.5-5.1)
[2022-07-24] MEDS: SODIUM FERR GLUC 62.5MG/5ML 125 MG in SODIUM CHL 0.9% 100 ML IV SCH (15:13)
[2022-07-24] MEDS: NOREPINEPHRINE BITARTRATE 32 MG in SODIUM CHL 0.9% 218 ML IV SCH ×2 (15:15→20:39)
[2022-07-24] MEDS: PHENYLEPHRINE INJ 80 MG in SODIUM CHL 0.9% 242 ML IV SCH ×2 (15:15→20:32)
[2022-07-24] MEDS: EPINEPHrine HCL INJECTION 16 MG in D5W 5% 234 ML IV SCH ×2 (15:15→20:45)
[2022-07-24] MEDS ORDERED: ALBUMIN 25% 50 ML IV ONE (16:30)
[2022-07-24] MEDS ORDERED: ALBUMIN 25% 100 ML IV ONE (16:30)
[2022-07-24] MEDS ORDERED: ALBUMIN 25% 300 ML IV ONE ×2 (16:45)
[2022-07-24] MEDS ORDERED: AMIODARONE 450mg/250ml AE 250 ML IV ONE (17:07)
[2022-07-24 20:08] LABS: Hematocrit 20.9 % (41.0-53.0); Mean Corpuscular Hemoglobin 24.5 pg (28.0-32.0); Mean Corpuscular Hgb Conc. 30.3 g/dL (32.0-36.0); Mean Corpuscular Volume 81.1 fL (80.0-100.0); Red Blood Cells 2.58 10^6/uL (4.5-5.90); Red Cell Distribution Width 19.2 % (11.8-14.3)
[2022-07-24 20:23] LABS: Hemoglobin 6.3 g/dL (13.5-17.5); White Blood Cell 33.8 10^3/uL (4.4-10.8)
[2022-07-24 20:24] LABS: Basophils % (manual) 0 (0.0-2.0); Blast Cells 0; Eosinophils % (manual) 0 (0-7); Reactive Lymphocytes 0
[2022-07-24] MEDS: ACETAMINOPHEN 325 MG TAB PO PRN ×5 (20:24→23:30)
[2022-07-24 20:40] LABS: Band Neutrophils % (manual) 6; Lymphocytes % (manual) 10 (10.0-50.0); Metamyelocytes % 2; Monocytes % (manual) 4 (0-12); Myelocytes % 2; Promyelocytes % 1
[2022-07-24 22:07] LABS: BUN/Creatinine Ratio 8.8; Calcium 6.5 mg/dL (8.5-10.1)
[2022-07-24 22:09] LABS: Potassium 5.6 mmol/L (3.5-5.1)
[2022-07-24] MEDS: SODIUM BICARBONATE 50ML VIAL 150 ML in D5W 5% 1,000 ML IV SCH ×2 (22:15→23:59)
[2022-07-24] MEDS: SODIUM ZIRCONIUM CYCL 10 GM PAK GT SCH (23:16)
[2022-07-25] VITALS (121 sets, daily range): BP systolic 82–115; BP diastolic 15–96
[2022-07-25] MEDS: LACTULOSE 20Gm/30ML SOLN PO SCH ×4 (00:12→18:00)
[2022-07-25] MEDS: MIDAZOLAM DRIP 50 mg/50mL 50 ML IV SCH ×2 (03:12→22:15)
[2022-07-25] MEDS: PHENYLEPHRINE INJ 80 MG in SODIUM CHL 0.9% 242 ML IV SCH ×2 (03:49→10:44)
[2022-07-25] MEDS: PROPOFOL 100 ML IV SCH (04:00)
[2022-07-25 04:09] LABS: Hematocrit 21.4 % (41.0-53.0); Mean Corpuscular Hemoglobin 24.7 pg (28.0-32.0); Mean Corpuscular Volume 79.6 fL (80.0-100.0); Red Blood Cells 2.69 10^6/uL (4.5-5.90); Red Cell Distribution Width 18.3 % (11.8-14.3); White Blood Cell 27.1 10^3/uL (4.4-10.8)
[2022-07-25 04:11] LABS: Hemoglobin 6.6 g/dL (13.5-17.5)
[2022-07-25 04:12] LABS: Basophils % (manual) 0 (0.0-2.0); Blast Cells 0; Eosinophils % (manual) 0 (0-7); Metamyelocytes % 0; Myelocytes % 0; Promyelocytes % 0; Reactive Lymphocytes 0
[2022-07-25 04:27] LABS: Calcium 6.5 mg/dL (8.5-10.1)
[2022-07-25 04:28] LABS: Potassium 5.6 mmol/L (3.5-5.1)
[2022-07-25 05:10] LABS: Band Neutrophils % (manual) 4; Lymphocytes % (manual) 9 (10.0-50.0); Monocytes % (manual) 8 (0-12)
[2022-07-25] MEDS: ACETAMINOPHEN 325 MG TAB PO PRN ×2 (05:29→13:48)
[2022-07-25] MEDS ORDERED: DEXTROSE (50%) 50ML SYRG IV ONE (05:45)
[2022-07-25] MEDS ORDERED: InsuLIN REG 1unit/0.01ml Soln (100units/ml) IV ONE (05:45)
[2022-07-25] MEDS ORDERED: CALCIUM GLUC 1,000mg/50ml-NS 50 ML IV ONE (05:45)
[2022-07-25] MEDS: LACTULOSE 10g/15ml SOLN 473ML PR SCH ×2 (06:00→11:06)
[2022-07-25] MEDS: VASOPRESSIN 20 UNITS in SODIUM CHL 0.9% 99 ML IV SCH ×2 (06:05→17:51)
[2022-07-25] MEDS: SODIUM ZIRCONIUM CYCL 10 GM PAK GT SCH ×3 (06:21→22:00)
[2022-07-25] MEDS: CEFTRIAXONE SODIUM 2 GM in D5W 5% 50 ML IV SCH (06:28)
[2022-07-25] MEDS: InsuLIN REG 1unit/0.01ml Soln (100units/ml) SC SCH ×4 (07:00→22:00)
[2022-07-25] MEDS: MIDODRINE HCL 10 MG TAB PO SCH ×3 (07:14→21:24)
[2022-07-25] MEDS: ACCU-CHEK COMFORT CURVE STRIP VI SCH ×4 (07:18→21:24)
[2022-07-25 08:56] LABS: Hematocrit 20.9 % (41.0-53.0); Mean Corpuscular Hgb Conc. 31.2 g/dL (32.0-36.0); Red Blood Cells 2.64 10^6/uL (4.5-5.90)
[2022-07-25 08:57] LABS: Mean Corpuscular Hemoglobin 24.7 pg (28.0-32.0); Mean Corpuscular Volume 79.3 fL (80.0-100.0); Red Cell Distribution Width 18.7 % (11.8-14.3); White Blood Cell 25.8 10^3/uL (4.4-10.8)
[2022-07-25 09:09] LABS: Hemoglobin 6.5 g/dL (13.5-17.5)
[2022-07-25 09:11] LABS: Basophils % (manual) 0 (0.0-2.0); Blast Cells 0; Eosinophils % (manual) 0 (0-7); Metamyelocytes % 0; Monocytes % (manual) 0 (0-12); Myelocytes % 0; Promyelocytes % 0; Reactive Lymphocytes 0
[2022-07-25 09:20] LABS: Partial Thromboplastin Time 45.1 sec (24.6-33.4)
[2022-07-25 09:49] LABS: INR > 8.0 (0.9-1.15)
[2022-07-25 09:54] LABS: Band Neutrophils % (manual) 14; Lymphocytes % (manual) 13 (10.0-50.0)
[2022-07-25] MEDS ORDERED: phytonadione 10 MG in SODIUM CHL 0.9% 50 ML IV ONE (10:00)
[2022-07-25] MEDS: PANTOPRAZOLE 40 MG/10 ML VIAL INJ IV SCH ×2 (10:43→21:24)
[2022-07-25] MEDS: SODIUM FERR GLUC 62.5MG/5ML 125 MG in SODIUM CHL 0.9% 100 ML IV SCH (12:50)
[2022-07-25] MEDS: SODIUM BICARBONATE 50ML VIAL 150 ML in D5W 5% 1,000 ML IV SCH (13:58)
[2022-07-25] MEDS: EPINEPHrine HCL INJECTION 16 MG in D5W 5% 234 ML IV SCH (22:15)
[2022-07-25 22:20] LABS: Hemoglobin 8.4 g/dL (13.5-17.5)
[2022-07-25 22:21] LABS: Hematocrit 26.2 % (41.0-53.0); Mean Corpuscular Hemoglobin 25.8 pg (28.0-32.0); Mean Corpuscular Hgb Conc. 32.1 g/dL (32.0-36.0); Mean Corpuscular Volume 80.3 fL (80.0-100.0); Red Blood Cells 3.26 10^6/uL (4.5-5.90); Red Cell Distribution Width 18.2 % (11.8-14.3); White Blood Cell 21.9 10^3/uL (4.4-10.8)
[2022-07-25 22:30] LABS: Basophils % (manual) 0 (0.0-2.0); Blast Cells 0; Eosinophils % (manual) 0 (0-7); Metamyelocytes % 0; Promyelocytes % 0; Reactive Lymphocytes 0
[2022-07-25] MEDS ORDERED: VANCOMYCIN PER PHARMACY 0 MG IV SCH (22:30)
[2022-07-25] MEDS ORDERED: MEROPENEM 500MG IVPB 50 ML IV SCH (22:30)
[2022-07-25 22:42] LABS: Albumin 2.6 g/dL (3.4-5.0); Potassium 5.2 mmol/L (3.5-5.1)
[2022-07-25 22:54] LABS: Band Neutrophils % (manual) 23; Lymphocytes % (manual) 14 (10.0-50.0); Monocytes % (manual) 6 (0-12); Myelocytes % 1
[2022-07-25] MEDS ORDERED: VANCOMYCIN 1GM/250ML 250 ML IV ONE (23:00)
[2022-07-25 23:09] LABS: Bilirubin, Total 3.9 mg/dL (0.2-1.0); Total Protein 6.8 g/dL (6.4-8.2)
[2022-07-25 23:11] LABS: Calcium 5.7 mg/dL (8.5-10.1)
[2022-07-26] VITALS (87 sets, daily range): BP systolic 71–156; BP diastolic 18–113
[2022-07-26] MEDS: PHENYLEPHRINE INJ 80 MG in SODIUM CHL 0.9% 242 ML IV SCH (01:47)
[2022-07-26] MEDS: MIDAZOLAM DRIP 50 mg/50mL 50 ML IV SCH ×2 (01:48→05:14)
[2022-07-26] MEDS ORDERED: VANCOMYCIN 1GM/250ML 250 ML IV ONE (02:30)
[2022-07-26] MEDS ORDERED: MEROPENEM 500MG IVPB 50 ML IV SCH (03:00)
[2022-07-26] MEDS: PROPOFOL 100 ML IV SCH (04:30)
[2022-07-26] MEDS: VASOPRESSIN 20 UNITS in SODIUM CHL 0.9% 99 ML IV SCH ×2 (05:13→16:48)
[2022-07-26 05:26] LABS: Basophils # (auto) 0.1 10 ^3/uL (0-0.2); Hemoglobin 8.4 g/dL (13.5-17.5); Red Cell Distribution Width 17.8 % (11.8-14.3)
[2022-07-26 05:30] LABS: Basophils % (auto) 0.3 % (0.0-2.0); Eosinophils # (auto) 0.4 10 ^3/uL (0-0.8); Eosinophils % (auto) 1.8 % (0.0-7.0); Lymphocytes # (auto) 2.6 10 ^3/uL (0.4-5.4); Lymphocytes % (auto) 12.6 % (10.0-50.0); Mean Corpuscular Hgb Conc. 32.2 g/dL (32.0-36.0); Mean Corpuscular Volume 80.8 fL (80.0-100.0); Monocytes # (auto) 1.6 10 ^3/uL (0-1.3); Monocytes % (auto) 7.5 % (0.0-12.0); Neutrophils # (auto) 16.2 10 ^3/uL (1.6-8.6); Neutrophils % (auto) 77.8 % (37.0-80.0); Red Blood Cells 3.23 10^6/uL (4.5-5.90); White Blood Cell 20.9 10^3/uL (4.4-10.8)
[2022-07-26 05:41] LABS: Nucleated Red Blood Cells % 4.7 %
[2022-07-26 05:54] LABS: Partial Thromboplastin Time 52.6 sec (24.6-33.4)
[2022-07-26 05:59] LABS: BUN/Creatinine Ratio 8.5; Potassium 5.5 mmol/L (3.5-5.1)
[2022-07-26] MEDS: LACTULOSE 20Gm/30ML SOLN PO SCH ×4 (06:00→17:00)
[2022-07-26] MEDS: LACTULOSE 10g/15ml SOLN 473ML PR SCH ×4 (06:00→17:00)
[2022-07-26 06:08] LABS: INR > 8.0 (0.9-1.15)
[2022-07-26 06:11] LABS: Calcium 5.4 mg/dL (8.5-10.1)
[2022-07-26] MEDS: ACCU-CHEK COMFORT CURVE STRIP VI SCH ×3 (06:15→17:18)
[2022-07-26] MEDS ORDERED: phytonadione 10 MG in SODIUM CHL 0.9% 50 ML IV ONE (06:30)
[2022-07-26] MEDS: MIDODRINE HCL 10 MG TAB PO SCH ×3 (06:40→18:00)
[2022-07-26] MEDS: SODIUM ZIRCONIUM CYCL 10 GM PAK GT SCH ×2 (06:40→14:00)
[2022-07-26] MEDS: InsuLIN REG 1unit/0.01ml Soln (100units/ml) SC SCH ×3 (07:00→17:00)
[2022-07-26] MEDS ORDERED: CALCIUM GLUC 1,000mg/50ml-NS 50 ML IV ONE (07:15)
[2022-07-26] MEDS: AMIODARONE 450mg/250ml AE 250 ML IV SCH (07:15)
[2022-07-26] MEDS: NOREPINEPHRINE BITARTRATE 32 MG in SODIUM CHL 0.9% 218 ML IV SCH (07:39)
[2022-07-26] MEDS: PANTOPRAZOLE 40 MG/10 ML VIAL INJ IV SCH (09:48)
[2022-07-26] MEDS: SODIUM FERR GLUC 62.5MG/5ML 125 MG in SODIUM CHL 0.9% 100 ML IV SCH (12:02)
[2022-07-26] MEDS: DEXTROSE (50%) 50ML SYRG IV PRN ×2 (12:16→17:20)
[2022-07-26] MEDS ORDERED: PHENYLEPHRINE IV 250 ML IV ONE (16:32)
[2022-07-26] MEDS ORDERED: LORazepam 2MG/ML-1ML VIAL IM ONE (18:15)
[2022-07-26] MEDS ORDERED: MORPHINE SULFATE INJ 2 MG/ml SYRG IM ONE (18:15)
[2022-07-26] MEDS ORDERED: LORazepam 2MG/ML-1ML VIAL IV PRN (18:15)
[2022-07-26] MEDS ORDERED: MORPHINE SULFATE INJ 2 MG/ml SYRG IV PRN (18:15)
== END 2022-07-26 23:32 | DRG 720 ==
LOC: EDBD 22:02 → ER 22:07 → TELE 07-10 02:19 → TELE-CENTR 07-10 08:34 → TELE 07-10 09:37 → ICU WEST 07-10 22:31 → TELE-WESTW 07-18 20:58 → ICU CENTRL 07-23 11:02
PROVIDERS: ADMIT Nurse Practitioner Family; ATTEND Internal Medicine
PROC: B24BZZ4 Ultrasonography of Heart with Aorta, Transesophageal (ICD-10-PCS; 2022-07-15)
PROC: 30233N1 Transfusion of Nonautologous Red Blood Cells into Peripheral Vein, Percutaneous Approach (ICD-10-PCS; 2022-07-15)
PROC: 5A1945Z Respiratory Ventilation, 24-96 Consecutive Hours (ICD-10-PCS; principal; 2022-07-24)
PROC: 0BH17EZ Insertion of Endotracheal Airway into Trachea, Via Natural or Artificial Opening (ICD-10-PCS; 2022-07-24)
PROC: 30233K1 Transfusion of Nonautologous Frozen Plasma into Peripheral Vein, Percutaneous Approach (ICD-10-PCS; 2022-07-24)
PROC: 5A1D70Z Performance of Urinary Filtration, Intermittent, Less than 6 Hours Per Day (ICD-10-PCS; 2022-07-24)
PROC: 5A1D70Z Performance of Urinary Filtration, Intermittent, Less than 6 Hours Per Day (ICD-10-PCS; 2022-07-25)
DX: A41.50 Gram-negative sepsis, unspecified (principal); J96.00 Acute respiratory failure, unspecified whether with hypoxia or hypercapnia; R65.21 Severe sepsis with septic shock; I76 Septic arterial embolism; G92.8 Other toxic encephalopathy; E87.1 Hypo-osmolality and hyponatremia; D68.9 Coagulation defect, unspecified; E88.09 Other disorders of plasma-protein metabolism, not elsewhere classified; I21.A1 Myocardial infarction type 2; D50.9 Iron deficiency anemia, unspecified; R16.1 Splenomegaly, not elsewhere classified; F15.20 Other stimulant dependence, uncomplicated; Z66 Do not resuscitate; N17.9 Acute kidney failure, unspecified; N10 Acute pyelonephritis; N18.31 Chronic kidney disease, stage 3a; Z51.5 Encounter for palliative care; E66.01 Morbid (severe) obesity due to excess calories; E87.5 Hyperkalemia; F41.9 Anxiety disorder, unspecified; I25.10 Atherosclerotic heart disease of native coronary artery without angina pectoris; I47.20 Ventricular tachycardia, unspecified; I50.9 Heart failure, unspecified; J98.11 Atelectasis; B96.89 Other specified bacterial agents as the cause of diseases classified elsewhere; Z68.37 Body mass index [BMI] 37.0-37.9, adult; I25.2 Old myocardial infarction; Z79.01 Long term (current) use of anticoagulants; Z82.49 Family history of ischemic heart disease and other diseases of the circulatory system; Z83.3 Family history of diabetes mellitus; Z86.79 Personal history of other diseases of the circulatory system; Z91.199 Patient's noncompliance with other medical treatment and regimen due to unspecified reason; Z95.2 Presence of prosthetic heart valve
CPT/HCPCS: 36415; 36600; 70450; 71045; 71046; 71250; 74150; 74176; 74181; 76705; 76775; 78582; 80048; 80053; 80076; 80202; 80307; 81001; 82105; 82140; 82270; 82378; 82550; 82570; 82607; 82746; 82805; 82962; 83036; 83540; 83550; 83605; 83690; 83735; 83880; 84132; 84156; 84300; 84443; 84484; 85007; 85018; 85025; 85027; 85379; 85384; 85610; 85730; 86301; 86850; 86900; 86901; 86920; 87040; 87070; 87081; 87086; 87205; 87426; 90935; 93005; 93306; 93312; 93970; 94002; 94003; 94640; 95819; 96365; 96367; 96368; 96375; 96376; 97110; 97116; 97163; 97530; C9113; G0378; J0153; J0171; J0330; J0696; J1815; J2001; J2185; J2250; J2405; J2543; J2704; J3430; J3490; J7060